=== PATIENT | female | born 1965 | race Two or more races ===

== ENCOUNTER 2020-11-03 18:51 | Emergency (ER) | payer OTHER, SELFPAY ==
[~2020-11-03] VITALS: Ht 160 cm; Wt 57.7 kg
--- NOTE | 2020-11-03 19:00 | NUR ---
Pt reporting 10/10 pain in right ankle. Minimal swelling, pedal pulses +2 bilateral, no redness or bruising.
[2020-11-03] MEDS ORDERED: OXYcodone/APAP 5/325MG TABLET ONE (21:45)
[2020-11-03] MEDS ORDERED: IBUPROFEN 600 MG TABLET ONE (21:45)
--- NOTE | 2020-11-03 21:50 | NUR ---
Medicated pt per e[facility]
[2020-11-03] MEDS ORDERED: IBUPROFEN 200 MG TABLET PO ONE (22:00)
[2020-11-03] MEDS ORDERED: OXYcodone/APAP 5/325MG TABLET PO ONE (22:00)
[2020-11-03] MEDS ORDERED: PLEASE ENTER ALLERGIES MC SCH ×2 (22:00)
--- NOTE | 2020-11-03 22:07 | NUR ---
Tech applying aircast and instructing on crutches use.
--- NOTE | 2020-11-03 22:23 | NUR ---
Pt refused crutches. Pt could not tolerate wearing the air cast due to swelling and pain, but was instructed on how to put it on.
[2020-11-03 22:25] VITALS: BP 102/51
== END 2020-11-03 22:41 | disposition home or self-care (01) ==
LOC: ED 22:00
DX: S93.491A Sprain of other ligament of right ankle, initial encounter (principal); M79.89 Other specified soft tissue disorders; X50.1XXA Overexertion from prolonged static or awkward postures, initial encounter; Y93.89 Activity, other specified; Y92.89 Other specified places as the place of occurrence of the external cause; Y99.8 Other external cause status
CPT/HCPCS: 99284